=== PATIENT | female | born 2005 | race Caucasian/White ===

== ENCOUNTER 2024-01-10 15:26 | Emergency (ER) | payer OTHER ==
[~2024-01-10] VITALS: Ht 157.5 cm; Wt 56.7 kg
[2024-01-10 15:33] VITALS: BP 129/69; PULSE 77; RESP 16; TEMP 98.4; O2SAT 99
[2024-01-10] MEDS ORDERED: IBUPROFEN 600 MG TAB ONE (16:32)
[2024-01-10] MEDS: IBUPROFEN 600 MG TAB PO STA (16:37)
[2024-01-10] MEDS: IBUPROFEN 600 MG TAB PO SCH (16:40)
[2024-01-10] MEDS ORDERED: METH-1681 PO (17:04)
[2024-01-10] MEDS ORDERED: IBUP-2213 PO (17:04)
[2024-01-10 17:16] VITALS: BP 118/77; PULSE 77; RESP 16; TEMP 98.4; O2SAT 99
== END 2024-01-10 17:18 | disposition home or self-care (01) ==
LOC: MED 15:26
DX: S83.91XA Sprain of unspecified site of right knee, initial encounter (principal); M79.18 Myalgia, other site; M54.2 Cervicalgia; Z79.899 Other long term (current) drug therapy; V89.2XXA Person injured in unspecified motor-vehicle accident, traffic, initial encounter; Y93.89 Activity, other specified; Y92.410 Unspecified street and highway as the place of occurrence of the external cause; Y99.8 Other external cause status
CPT/HCPCS: 73562; 99283